=== PATIENT | female | born 1995 | race Caucasian/White ===

== ENCOUNTER → 2016-10-07 | Outpatient (CLI) | payer SELFPAY | END | disposition home or self-care (01) | LOC: MW.CHOBGYN 14:22 | PROVIDERS: ATTEND Advanced Practice Midwife | DX: Z30.9 Encounter for contraceptive management, unspecified (principal) | CPT/HCPCS: 81025 ==

== ENCOUNTER 2016-12-30 20:21 | Observation (INO) | payer SELFPAY ==
[2016-12-30] MEDS ORDERED: Sodium Chloride 0.9% 1,000 ML IV ONE (20:54)
--- NOTE | 2016-12-30 21:23 | EDM.PDOC ---
ED HPI GENERAL MEDICAL PROBLEM - General Chief Complaint: Skin Complaint Stated Complaint: PT LT CHEEK SWOLLEN Time Seen by Provider: 12/30/16 20:48 - History of Present Illness INITIAL COMMENTS - FREE TEXT/NARRATIVE: HISTORY AND PHYSICAL: History of present illness: Patient's 21-year-old white female sensory concern of swelling redness and pain to her left face this started with some type of the break in the skin of her left cheek she subsequently tried to exude pus or other material from it and it is gotten more red and more swollen and more painful. She denies fever chills nausea vomiting or other complaints Review of systems: As per history of present illness and below otherwise all systems reviewed and negative. Past medical history: As per history of present illness and as reviewed below otherwise noncontributory. Surgical history: As per history of present illness and as reviewed below otherwise noncontributory. Social history: No reported history of drug or alcohol abuse. Family history: As per history of present illness and as reviewed below otherwise noncontributory. Physical exam: HEENT: Moderate swelling with erythema left cheek extending to the periorbital area she has small excoriated area approximately 3 mm her left cheek., normocephalic, pupils reactive, negative for conjunctival pallor or scleral icterus, mucous membranes moist, throat clear, neck supple, nontender, trachea midline. Lungs: Clear to auscultation, breath sounds equal bilaterally, chest nontender. Heart: S1S2, regular, negative for clicks, rubs, or JVD. Abdomen: Soft, nondistended, nontender. Negative for masses or hepatosplenomegaly. Negative for costovertebral tenderness. Pelvis: Stable nontender. Genitourinary: Deferred. Rectal: Deferred. Extremities: Atraumatic, negative for cords or calf pain. Neurovascular unremarkable. Neuro: Awake, alert, oriented. Cranial nerves II through XII unremarkable. Cerebellum unremarkable. Motor and sensory unremarkable throughout. Exam nonfocal. Diagnostics: CBC CMP blood culture 2 CT maxillofacial with IV contrast Therapeutics: Normal saline 1 L bolus vancomycin 1 g IV Impression: #1 cellulitis left face Definitive disposition and diagnosis as appropriate pending reevaluation and review of above. face area Pain Score (Numeric/FACES): 8 - Related Data Allergies Allergy/AdvReac Type Severity Reaction Status Date / Time No Known Allergies Allergy Verified 12/30/16 20:30 Home Meds: Home Meds . [No Known Home Meds] 08/01/14 [History] Past Medical History - Past Health History Medical/Surgical History: Denies Medical/Surgical History Social & Family History - Tobacco Use Smoking Status *Q: Former Smoker Years of Tobacco use: 5 Used Tobacco, but Quit: Yes Month Tobacco Last Used: 1 - Alcohol Use Days Per Week of Alcohol Use: 0 - Recreational Drug Use Recreational Drug Use: No ED ROS GENERAL - Review of Systems Review Of Systems: ROS reveals no pertinent complaints other than HPI. ED EXAM, SKIN/RASH Exam: See Below (See dictation) Course - Vital Signs Last Recorded V/S: Last Vital Signs Temp 36.5 C 12/30/16 20:31 Pulse 82 12/30/16 20:31 Resp 16 12/30/16 20:31 BP 124/72 12/30/16 20:31 Pulse Ox 98 12/30/16 20:31 - Orders/Labs/Meds Orders: Active Orders 24 hr Category Date Time Status Admission Status [Patient Status] [ADT] Stat ADT 12/30/16 21:43 Active Antiembolic Devices [RC] PER UNIT ROUTINE Care 12/30/16 21:49 Active Oxygen Therapy [RC] PRN Care 12/30/16 21:47 Active Up ad Misty [RC] ASDIRECTED Care 12/30/16 21:47 Active VTE/DVT Education [RC] PER UNIT ROUTINE Care 12/30/16 21:47 Active Vital Signs [RC] Q4H Care 12/30/16 21:47 Active Regular Diet [DIET] Diet 12/30/16 Dinner Active BASIC METABOLIC PANEL,BMP [CHEM] AM Lab 12/31/16 05:11 Ordered CBC WITH AUTO DIFF [HEME] AM Lab 12/31/16 05:11 Ordered CULTURE BLOOD [BC] Stat Lab 12/30/16 21:08 Received CULTURE BLOOD [BC] Stat Lab 12/30/16 21:15 Received MAGNESIUM [CHEM] AM Lab 12/31/16 05:11 Ordered Acetaminophen [Tylenol] Med 12/30/16 21:47 Ordered 650 mg PO Q4H PRN Ondansetron [Zofran ODT] Med 12/30/16 21:47 Ordered 4 mg PO Q4H PRN Sodium Chloride 0.9% [Saline Flush] Med 12/30/16 21:47 Ordered 10 ml FLUSH ASDIRECTED PRN Sodium Chloride 0.9% [Saline Flush] Med 12/30/16 21:47 Ordered 2.5 ml FLUSH ASDIRECTED PRN Temazepam [Restoril] Med 12/30/16 21:47 Ordered 15 mg PO BEDTIME PRN Vancomycin Pharmacy to Dose [Pharmacy to Dose - Med 12/30/16 22:00 Ordered Vancomycin] 1 dose .XX ASDIRECTED Vancomycin [Vancocin] 1 gm Med 12/30/16 21:23 Active Sodium Chloride 0.9% [Normal Saline] 250 ml IV ONETIME cefTRIAXone [Rocephin] Med 12/30/16 22:00 Ordered 1,000 mg IVPUSH Q24H Blood Culture x2 Reflex Set [OM.PC] Stat Ot 12/30/16 20:54 Ordered Convert IV to Saline Lock [OM.PC] Stat Ot 12/30/16 21:47 Ordered Sequential Compression Device [OM.PC] Per Unit Routine Ot 12/30/16 21:48 Ordered Resuscitation Status Routine Resus Stat 12/30/16 21:47 Ordered Medication Orders Acetaminophen (Tylenol) 650 mg PO Q4H PRN PRN Reason: Pain (Mild 1-3)/fever Ceftriaxone Sodium (Rocephin) 1,000 mg IVPUSH Q24H REFUGIO Vancomycin HCl 1 gm/ Sodium (Chloride) 250 mls @ 250 mls/hr IV ONETIME ONE Stop: 12/30/16 22:22 Last Admin: 12/30/16 21:36 Dose: 250 mls/hr Ondansetron HCl (Zofran Odt) 4 mg PO Q4H PRN PRN Reason: nausea, able to take PO Sodium Chloride (Saline Flush) 10 ml FLUSH ASDIRECTED PRN PRN Reason: Keep Vein Open Sodium Chloride (Saline Flush) 2.5 ml FLUSH ASDIRECTED PRN PRN Reason: Keep Vein Open Temazepam (Restoril) 15 mg PO BEDTIME PRN PRN Reason: Sleep Vancomycin HCl (Pharmacy To Dose - Vancomycin) 1 dose .XX ASDIRECTED [facility] Labs: Laboratory Tests 12/30/16 12/30/16 12/30/16 Range/Units 21:15 21:15 21:15 WBC 10.36 (4.0-11.0) K/uL RBC 4.82 (4.30-5.90) M/uL Hgb 14.1 (12.0-16.0) g/dL Hct 41.5 (36.0-46.0) % MCV 86.1 (80.0-98.0) fL MCH 29.3 (27.0-32.0) pg MCHC 34.0 (31.0-37.0) g/dL RDW Std Deviation 38.5 (28.0-62.0) fl RDW Coeff of Becky 12 (11.0-15.0) % Plt Count 204 (150-400) K/uL MPV 11.70 (7.40-12.00) fL Neut % (Auto) 50.5 (48.0-80.0) % Lymph % (Auto) 39.0 (16.0-40.0) % [place] % (Auto) 8.9 (0.0-15.0) % Eos % (Auto) 1.3 (0.0-7.0) % Baso % (Auto) 0.3 (0.0-1.5) % Neut # (Auto) 5.2 (1.4-5.7) K/uL Lymph # (Auto) 4.0 H (0.6-2.4) K/uL [place] # (Auto) 0.9 H (0.0-0.8) K/uL Eos # (Auto) 0.1 (0.0-0.7) K/uL Baso # (Auto) 0.0 (0.0-0.1) K/uL Nucleated RBC % 0.0 /100WBC Nucleated RBCs # 0 K/uL Sodium 139 (136-146) mmol/L Potassium 3.9 (3.5-5.1) mmol/L Chloride 111 H (98-110) mmol/L Carbon Dioxide 22 (21-31) mmol/L BUN 13 (6.0-23.0) mg/dL Creatinine 0.8 (0.6-1.5) mg/dL Est Cr Clr Drug Dosing 117.23 mL/min Estimated GFR (MDRD) > 60.0 ml/min Glucose 80 (60-110) mg/dL Calcium 9.2 (8.8-10.8) mg/dL Total Bilirubin 0.6 (0.1-1.5) mg/dL AST 14 (5-40) IU/L ALT 19 (8-54) IU/L Alkaline Phosphatase 71 (40-150) Total Protein 6.9 (6.0-8.0) g/dL Albumin 4.0 (3.5-5.0) g/dL Globulin 2.9 (2.0-3.5) g/dL Albumin/Globulin Ratio 1.4 (1.3-2.8) HCG, Qual NEGATIVE (NEG) Urine Color Urine Appearance Urine pH (5.0-8.0) Ur Specific [place] (1.001-1.035) Urine Protein (NEGATIVE) mg/dL Urine Glucose (UA) (NEGATIVE) mg/dL Urine Ketones (NEGATIVE) mg/dL Urine Occult Blood (NEGATIVE) Urine Nitrite (NEGATIVE) Urine Bilirubin (NEGATIVE) Urine Urobilinogen (<2.0) EU/dL Ur Leukocyte Esterase (NEGATIVE) Urine RBC (0-2/HPF) Urine WBC (0-5/HPF) Ur Epithelial Cells (NONE-FEW) Urine Bacteria (NEGATIVE) Urine Mucus (NONE-MOD) 12/30/16 Range/Units 21:25 WBC (4.0-11.0) K/uL RBC (4.30-5.90) M/uL Hgb (12.0-16.0) g/dL Hct (36.0-46.0) % MCV (80.0-98.0) fL MCH (27.0-32.0) pg MCHC (31.0-37.0) g/dL RDW Std Deviation (28.0-62.0) fl RDW Coeff of Becky (11.0-15.0) % Plt Count (150-400) K/uL MPV (7.40-12.00) fL Neut % (Auto) (48.0-80.0) % Lymph % (Auto) (16.0-40.0) % [place] % (Auto) (0.0-15.0) % Eos % (Auto) (0.0-7.0) % Baso % (Auto) (0.0-1.5) % Neut # (Auto) (1.4-5.7) K/uL Lymph # (Auto) (0.6-2.4) K/uL [place] # (Auto) (0.0-0.8) K/uL Eos # (Auto) (0.0-0.7) K/uL Baso # (Auto) (0.0-0.1) K/uL Nucleated RBC % /100WBC Nucleated RBCs # K/uL Sodium (136-146) mmol/L Potassium (3.5-5.1) mmol/L Chloride (98-110) mmol/L Carbon Dioxide (21-31) mmol/L BUN (6.0-23.0) mg/dL Creatinine (0.6-1.5) mg/dL Est Cr Clr Drug Dosing mL/min Estimated GFR (MDRD) ml/min Glucose (60-110) mg/dL Calcium (8.8-10.8) mg/dL Total Bilirubin (0.1-1.5) mg/dL AST (5-40) IU/L ALT (8-54) IU/L Alkaline Phosphatase (40-150) Total Protein (6.0-8.0) g/dL Albumin (3.5-5.0) g/dL Globulin (2.0-3.5) g/dL Albumin/Globulin Ratio (1.3-2.8) HCG, Qual (NEG) Urine Color YELLOW Urine Appearance CLEAR Urine pH 6.0 (5.0-8.0) Ur Specific [place] 1.020 (1.001-1.035) Urine Protein NEGATIVE (NEGATIVE) mg/dL Urine Glucose (UA) NEGATIVE (NEGATIVE) mg/dL Urine Ketones NEGATIVE (NEGATIVE) mg/dL Urine Occult Blood TRACE-INTACT (NEGATIVE) Urine Nitrite NEGATIVE (NEGATIVE) Urine Bilirubin NEGATIVE (NEGATIVE) Urine Urobilinogen 0.2 (<2.0) EU/dL Ur Leukocyte Esterase SMALL (NEGATIVE) Urine RBC 0-2 (0-2/HPF) Urine WBC 2-4 (0-5/HPF) Ur Epithelial Cells FEW (NONE-FEW) Urine Bacteria FEW (NEGATIVE) Urine Mucus FEW (NONE-MOD) Meds: Medications Generic Name Dose Route Start Last Admin Trade Name Freq PRN Reason Stop Dose Admin Acetaminophen 650 mg 12/30/16 21:47 Tylenol PO Q4H PRN Pain (Mild 1-3)/fever Ceftriaxone Sodium 1,000 mg 12/30/16 22:00 Rocephin IVPUSH Q24H REFUGIO Vancomycin HCl 1 gm/ Sodium 250 mls @ 250 mls/hr 12/30/16 21:23 12/30/16 21: 36 Chloride IV 12/30/16 22:22 250 mls/hr ONETIME ONE Administration Ondansetron HCl 4 mg 12/30/16 21:47 Zofran Odt PO Q4H PRN nausea, able to take PO Sodium Chloride 10 ml 12/30/16 21:47 Saline Flush FLUSH ASDIRECTED PRN Keep Vein Open Sodium Chloride 2.5 ml 12/30/16 21:47 Saline Flush FLUSH ASDIRECTED PRN Keep Vein Open Temazepam 15 mg 12/30/16 21:47 Restoril PO BEDTIME PRN Sleep Vancomycin HCl 1 dose 12/30/16 22:00 Pharmacy To Dose - Vancomycin .XX ASDIRECTED REFUGIO Discontinued Medications Generic Name Dose Route Start Last Admin Trade Name Freq PRN Reason Stop Dose Admin Diphenhydramine HCl 50 mg 12/30/16 21:58 12/30/16 22:00 Benadryl IVPUSH 12/30/16 21:59 50 mg ONETIME ONE Administration Diphenhydramine HCl Confirm 12/30/16 21:56 12/30/16 22:00 Benadryl Administered 12/30/16 21:57 Not Given Dose 50 mg .ROUTE .STK-MED ONE Sodium Chloride 1,000 mls @ 999 mls/hr 12/30/16 20:54 12/30/16 21:18 Normal Saline IV 12/30/16 21:54 999 mls/hr STAT ONE Administration Departure - Departure Time of Disposition: 22:01 Disposition: Refer to Observation Condition: Good Clinical Impression: Cellulitis - Discharge Information Forms: ED Department Discharge - My Orders Last 24 Hours: My Active Orders 12/30/16 20:54 Blood Culture x2 Reflex Set [OM.PC] Stat 12/30/16 21:08 CULTURE BLOOD [BC] Stat 12/30/16 21:15 CULTURE BLOOD [BC] Stat 12/30/16 21:23 Vancomycin [Vancocin] 1 gm Sodium Chloride 0.9% [Normal Saline] 250 ml IV ONETIME - Assessment/Plan Last 24 Hours: My Active Orders 12/30/16 20:54 Blood Culture x2 Reflex Set [OM.PC] Stat 12/30/16 21:08 CULTURE BLOOD [BC] Stat 12/30/16 21:15 CULTURE BLOOD [BC] Stat 12/30/16 21:23 Vancomycin [Vancocin] 1 gm Sodium Chloride 0.9% [Normal Saline] 250 ml IV ONETIME
[2016-12-30] MEDS ORDERED: Sodium Chloride 0.9% 2.5 ML Syringe FLUSH PRN (21:47)
[2016-12-30] MEDS ORDERED: Sodium Chloride 0.9% 10 ML Syringe FLUSH PRN (21:47)
[2016-12-30] MEDS ORDERED: Temazepam 15 MG Cap PO PRN (21:47)
[2016-12-30] MEDS ORDERED: Ondansetron 4 MG Tab.DIS PO PRN (21:47)
[2016-12-30 21:53] LABS: CHLORIDE,CL 111 mmol/L (98-110); SODIUM,NA 139 mmol/L (136-146)
[2016-12-30] MEDS ORDERED: diphenhydrAMINE 50 MG/ML SDV ONE (21:56)
[2016-12-30] MEDS ORDERED: diphenhydrAMINE 50 MG/ML SDV IVPUSH ONE (21:58)
--- NOTE | 2016-12-30 21:58 | PCM.HP ---
H&P History of Present Illness - General Date of Service: 12/30/16 Admit Problem/Dx: Admission Diagnosis/Problem Admission Diagnosis/Problem Cellulitis Source of Information: Patient, Provider - History of Present Illness Initial Comments - Free Text/Narative: She presented to the ED today with recent onset of facial soreness and swelling and redness. She was diagnosed with facial cellulitis. face area Pain Score (Numeric/FACES): 8 - Related Data Allergies/Adverse Reactions: Allergies Allergy/AdvReac Type Severity Reaction Status Date / Time No Known Allergies Allergy Verified 12/30/16 20:30 Home Medications: Home Meds . [No Known Home Meds] 08/01/14 [History] Past Medical History - Past Health History Medical/Surgical History: Denies Medical/Surgical History HEENT History: Reports: None Cardiovascular History: Reports: None Respiratory History: Reports: None Gastrointestinal History: Reports: None Genitourinary History: Reports: None [employer]IST History: Reports: Musculoskeletal History: Reports: None Neurological History: Reports: None Psychiatric History: Reports: None Endocrine/Metabolic History: Reports: None Hematologic History: Reports: None Immunologic History: Reports: None Oncologic (Cancer) History: Reports: None Dermatologic History: Reports: None - Infectious Disease History Infectious Disease History: Reports: None Social & Family History - Family History Family Medical History: Noncontributory - Tobacco Use Smoking Status *Q: Current Some Day Smoker Years of Tobacco use: 8 Packs/Tins Daily: 0.5 Used Tobacco, but Quit: Yes Month Tobacco Last Used: 1 - Caffeine Use Caffeine Use: Reports: None - Alcohol Use Days Per Week of Alcohol Use: 0 - Recreational Drug Use Recreational Drug Use: No H&P Review of Systems - Review of Systems: Review Of Systems: See Below General: Denies: Fever, Chills HEENT: Reports: Other (no dental pain). Denies: Ear Pain, Headaches, Sore Throat Pulmonary: Denies: Shortness of Breath, Wheezing, Cough, Sputum, Hemoptysis Cardiovascular: Denies: Chest Pain, Palpitations Gastrointestinal: Denies: Abdominal Pain, Black Stool, Bloody Stool, Difficulty Swallowing, Hematochezia, Nausea Genitourinary: Denies: Dysuria, Hematuria Musculoskeletal: Reports: No Symptoms Skin: Denies: Cyanosis, Jaundice Psychiatric: Denies: Confusion Exam - Exam Exam: See Below - Vital Signs Vital Signs: Last Vital Signs Temp 97.7 F 12/30/16 20:31 Pulse 82 12/30/16 20:31 Resp 16 12/30/16 20:31 BP 124/72 12/30/16 20:31 Pulse Ox 98 12/30/16 20:31 Weight: 83.5 kg - Exam General: Alert, Oriented, Cooperative HEENT: EOMI, Mucosa Moist & [place] Neck: Supple, Trachea Midline Lungs: Clear to Auscultation, Normal Respiratory Effort Cardiovascular: Regular Rate, Regular Rhythm Abdomen: Soft. No: Distention, Tenderness (Female) Exam: Deferred Rectal (Female) Exam: Deferred Extremities: Normal Inspection Skin: Other (left cheek with swelling and tenderness and induration; puffiness around left infraorbital region. EOMs normal ; central 4 mm crusted area; no definite abscess noted. ) Neurological: Cranial Nerves Intact, Normal Speech - Patient Data Lab Results Last 24 hrs: Laboratory Results - last 24 hr 12/30/16 12/30/16 12/30/16 Range/Units 21:15 21:15 21:25 WBC 10.36 (4.0-11.0) K/uL RBC 4.82 (4.30-5.90) M/uL Hgb 14.1 (12.0-16.0) g/dL Hct 41.5 (36.0-46.0) % MCV 86.1 (80.0-98.0) fL MCH 29.3 (27.0-32.0) pg MCHC 34.0 (31.0-37.0) g/dL RDW Std Deviation 38.5 (28.0-62.0) fl RDW Coeff of Becky 12 (11.0-15.0) % Plt Count 204 (150-400) K/uL MPV 11.70 (7.40-12.00) fL Neut % (Auto) 50.5 (48.0-80.0) % Lymph % (Auto) 39.0 (16.0-40.0) % [place] % (Auto) 8.9 (0.0-15.0) % Eos % (Auto) 1.3 (0.0-7.0) % Baso % (Auto) 0.3 (0.0-1.5) % Neut # (Auto) 5.2 (1.4-5.7) K/uL Lymph # (Auto) 4.0 H (0.6-2.4) K/uL [place] # (Auto) 0.9 H (0.0-0.8) K/uL Eos # (Auto) 0.1 (0.0-0.7) K/uL Baso # (Auto) 0.0 (0.0-0.1) K/uL Nucleated RBC % 0.0 /100WBC Nucleated RBCs # 0 K/uL HCG, Qual NEGATIVE (NEG) Urine Color YELLOW Urine Appearance CLEAR Urine pH 6.0 (5.0-8.0) Ur Specific [place] 1.020 (1.001-1.035) Urine Protein NEGATIVE (NEGATIVE) mg/dL Urine Glucose (UA) NEGATIVE (NEGATIVE) mg/dL Urine Ketones NEGATIVE (NEGATIVE) mg/dL Urine Occult Blood TRACE-INTACT (NEGATIVE) Urine Nitrite NEGATIVE (NEGATIVE) Urine Bilirubin NEGATIVE (NEGATIVE) Urine Urobilinogen 0.2 (<2.0) EU/dL Ur Leukocyte Esterase SMALL (NEGATIVE) Result Diagrams: 12/30/16 21:15 *Q Meaningful Use (ADM) - VTE *Q VTE Criteria *Q: - Stroke *Q Stroke Criteria *Q: - AMI *Q AMI Criteria *Q: - Problem List (1) Facial cellulitis SNOMED Code(s): 232409581 ICD Code: L03.211 - CELLULITIS OF FACE Status: Acute Current Visit: Yes Problem List Initiated/Reviewed/Updated: Yes Orders Last 24hrs: Active Orders 24 hr Category Date Time Status Admission Status [Patient Status] [ADT] Stat ADT 12/30/16 21:43 Active Antiembolic Devices [RC] PER UNIT ROUTINE Care 12/30/16 21:49 Ordered Oxygen Therapy [RC] PRN Care 12/30/16 21:47 Ordered Up ad Misty [RC] ASDIRECTED Care 12/30/16 21:47 Ordered VTE/DVT Education [RC] PER UNIT ROUTINE Care 12/30/16 21:47 Ordered Vital Signs [RC] Q4H Care 12/30/16 21:47 Ordered Regular Diet [DIET] Diet 12/30/16 Dinner Ordered BASIC METABOLIC PANEL,BMP [CHEM] AM Lab 12/31/16 05:11 Ordered CBC WITH AUTO DIFF [HEME] AM Lab 12/31/16 05:11 Ordered COMPREHENSIVE METABOLIC PN,CMP [CHEM] Stat Lab 12/30/16 21:15 Received CULTURE BLOOD [BC] Stat Lab 12/30/16 21:08 Received CULTURE BLOOD [BC] Stat Lab 12/30/16 21:15 Received MAGNESIUM [CHEM] AM Lab 12/31/16 05:11 Ordered UA W/MICROSCOPIC [URIN] Stat Lab 12/30/16 21:25 Received Acetaminophen [Tylenol] Med 12/30/16 21:47 Ordered 650 mg PO Q4H PRN Ondansetron [Zofran ODT] Med 12/30/16 21:47 Ordered 4 mg PO Q4H PRN Sodium Chloride 0.9% [Saline Flush] Med 12/30/16 21:47 Ordered 10 ml FLUSH ASDIRECTED PRN Sodium Chloride 0.9% [Saline Flush] Med 12/30/16 21:47 Ordered 2.5 ml FLUSH ASDIRECTED PRN Temazepam [Restoril] Med 12/30/16 21:47 Ordered 15 mg PO BEDTIME PRN Vancomycin Pharmacy to Dose [Pharmacy to Dose - Med 12/30/16 22:00 Ordered Vancomycin] 1 dose .XX ASDIRECTED Vancomycin [Vancocin] 1 gm Med 12/30/16 21:23 Active Sodium Chloride 0.9% [Normal Saline] 250 ml IV ONETIME cefTRIAXone [Rocephin] Med 12/30/16 22:00 Ordered 1,000 mg IVPUSH Q24H Blood Culture x2 Reflex Set [OM.PC] Stat Oth 12/30/16 20:54 Ordered Convert IV to Saline Lock [OM.PC] Stat Oth 12/30/16 21:47 Ordered Sequential Compression Device [OM.PC] Per Unit Routine Oth 12/30/16 21:48 Ordered Resuscitation Status Routine Resus Stat 12/30/16 21:47 Ordered Medication Orders Acetaminophen (Tylenol) 650 mg PO Q4H PRN PRN Reason: Pain (Mild 1-3)/fever Ceftriaxone Sodium (Rocephin) 1,000 mg IVPUSH Q24H REFUGIO Vancomycin HCl 1 gm/ Sodium (Chloride) 250 mls @ 250 mls/hr IV ONETIME ONE Stop: 12/30/16 22:22 Last Admin: 12/30/16 21:36 Dose: 250 mls/hr Ondansetron HCl (Zofran Odt) 4 mg PO Q4H PRN PRN Reason: nausea, able to take PO Sodium Chloride (Saline Flush) 10 ml FLUSH ASDIRECTED PRN PRN Reason: Keep Vein Open Sodium Chloride (Saline Flush) 2.5 ml FLUSH ASDIRECTED PRN PRN Reason: Keep Vein Open Temazepam (Restoril) 15 mg PO BEDTIME PRN PRN Reason: Sleep Vancomycin HCl (Pharmacy To Dose - Vancomycin) 1 dose .XX ASDIRECTED REFUGIO
[2016-12-30] MEDS ORDERED: cefTRIAXone 1,000 MG VIAL IVPUSH SCH (22:00)
[2016-12-30] MEDS ORDERED: cefTRIAXone 1 GM in Premix Bag 1 BAG IV SCH (22:15)
[2016-12-30] MEDS: Acetaminophen 325 MG Tab PO PRN (22:47)
[2016-12-30] MEDS: Nicotine 21 MG/24 Hr Patch TRDERM SCH (23:14)
[2016-12-30] MEDS: Clindamycin Phosphate in D5W 300 MG in Premix Bag 1 BAG IV SCH ×2 (23:26)
[2016-12-31] MEDS: Clindamycin Phosphate in D5W 300 MG in Premix Bag 1 BAG IV SCH ×4 (04:48→10:35)
[2016-12-31 06:14] LABS: CHLORIDE,CL 113 mmol/L (98-110); SODIUM,NA 138 mmol/L (136-146)
[2016-12-31] MEDS: Acetaminophen 325 MG Tab PO PRN (08:44)
[2016-12-31] MEDS: Nicotine 21 MG/24 Hr Patch TRDERM SCH (08:45)
[2016-12-31 09:01] VITALS: BP 116/70
--- NOTE | 2016-12-31 09:02 | PCM.DCSUM1 ---
Discharge Summary - Hospital Course Brief History: she was admitted with facial cellulitis - Discharge Data Discharge Date: 12/31/16 Discharge Disposition: Home, Self-Care 01 Condition: Good - Discharge Diagnosis/Problem(s) (1) Facial cellulitis SNOMED Code(s): 212778084 ICD Code: L03.211 - CELLULITIS OF FACE Status: Acute Current Visit: Yes - Patient Summary/Data Hospital Course: she was started on vancomycin and zosyn. She showed remarkable improvement by the day after discharge and wants to go home. The facial swelling and redness has regressed by at least 50%. There is still some induration and I advised that incision and drainage might need to be considered if she does not show continued improvement. I recommended a further time in the hospital but she is insistent on going home today understanding the risks or worsening. I advised follow up tomorrow with a primary care physician - Discharge Plan Home Medications: Home Meds . [No Known Home Meds] 08/01/14 [History] Forms: ED Department Discharge Referrals: PCP,None [Primary Care Provider] - - Patient Data Vitals - Most Recent: Last Vital Signs Temp 98.6 F 12/31/16 04:00 Pulse 88 12/31/16 04:00 Resp 16 12/31/16 04:00 BP 126/73 12/31/16 04:00 Pulse Ox 95 12/31/16 04:00 Weight - Most Recent: 84.5 kg Lab Results - Last 24 hrs: Laboratory Results - last 24 hr 12/31/16 12/31/16 Range/Units 05:28 05:28 WBC 9.02 (4.0-11.0) K/uL RBC 4.43 (4.30-5.90) M/uL Hgb 12.9 (12.0-16.0) g/dL Hct 38.4 (36.0-46.0) % MCV 86.7 (80.0-98.0) fL MCH 29.1 (27.0-32.0) pg MCHC 33.6 (31.0-37.0) g/dL RDW Std Deviation 38.9 (28.0-62.0) fl RDW Coeff of Becky 12 (11.0-15.0) % Plt Count 196 (150-400) K/uL MPV 11.90 (7.40-12.00) fL Neut % (Auto) 43.2 L (48.0-80.0) % Lymph % (Auto) 45.7 H (16.0-40.0) % [place] % (Auto) 8.9 (0.0-15.0) % Eos % (Auto) 1.8 (0.0-7.0) % Baso % (Auto) 0.4 (0.0-1.5) % Neut # (Auto) 3.9 (1.4-5.7) K/uL Lymph # (Auto) 4.1 H (0.6-2.4) K/uL [place] # (Auto) 0.8 (0.0-0.8) K/uL Eos # (Auto) 0.2 (0.0-0.7) K/uL Baso # (Auto) 0.0 (0.0-0.1) K/uL Nucleated RBC % 0.0 /100WBC Nucleated RBCs # 0 K/uL Sodium 138 (136-146) mmol/L Potassium 3.6 (3.5-5.1) mmol/L Chloride 113 H (98-110) mmol/L Carbon Dioxide 21 (21-31) mmol/L BUN 10 (6.0-23.0) mg/dL Creatinine 0.8 (0.6-1.5) mg/dL Est Cr Clr Drug Dosing 105.01 mL/min Estimated GFR (MDRD) > 60.0 ml/min Glucose 98 (60-110) mg/dL Calcium 8.3 L (8.8-10.8) mg/dL Magnesium 1.7 (1.5-2.3) mEq/L Med Orders - Current: Current Medications Acetaminophen (Tylenol) 650 mg PO Q4H PRN PRN Reason: Pain (Mild 1-3)/fever Last Admin: 12/31/16 08:44 Dose: 650 mg Ceftriaxone Sodium/Dextrose 1 (gm/ Premix) 50 mls @ 100 mls/hr IV Q24H [facility] Last Admin: 12/30/16 22:44 Dose: 100 mls/hr Clindamycin Phosphate 300 mg/ (Premix) 50 mls @ 150 mls/hr IV Q6H [facility] Last Admin: 12/31/16 04:48 Dose: 150 mls/hr Nicotine (Habitrol) 21 mg TRDERM DAILY [facility] Last Admin: 12/31/16 08:45 Dose: 21 mg Ondansetron HCl (Zofran Odt) 4 mg PO Q4H PRN PRN Reason: nausea, able to take PO Sodium Chloride (Saline Flush) 10 ml FLUSH ASDIRECTED PRN PRN Reason: Keep Vein Open Sodium Chloride (Saline Flush) 2.5 ml FLUSH ASDIRECTED PRN PRN Reason: Keep Vein Open Temazepam (Restoril) 15 mg PO BEDTIME PRN PRN Reason: Sleep Discontinued Medications Ceftriaxone Sodium (Rocephin) 1,000 mg IVPUSH Q24H [facility] Last Admin: 12/30/16 22:49 Dose: Not Given Diphenhydramine HCl (Benadryl) 50 mg IVPUSH ONETIME ONE Stop: 12/30/16 21:59 Last Admin: 12/30/16 22:00 Dose: 50 mg Diphenhydramine HCl (Benadryl) Confirm Administered Dose 50 mg .ROUTE .STK-MED ONE Stop: 12/30/16 21:57 Last Admin: 12/30/16 22:00 Dose: Not Given Sodium Chloride (Normal Saline) 1,000 mls @ 999 mls/hr IV STAT ONE Stop: 12/30/16 21:54 Last Admin: 12/30/16 21:18 Dose: 999 mls/hr Vancomycin HCl 1 gm/ Sodium (Chloride) 250 mls @ 250 mls/hr IV ONETIME ONE Stop: 12/30/16 22:22 Last Admin: 12/30/16 21:36 Dose: 250 mls/hr Clindamycin Phosphate 300 mg/ (Sodium Chloride) 52 mls @ 100 mls/hr IV Q6H [facility] Last Admin: 12/30/16 23:22 Dose: Not Given Vancomycin HCl (Pharmacy To Dose - Vancomycin) 1 dose .XX ASDIRECTED REFUGIO *Q Meaningful Use (DIS) - VTE *Q VTE Criteria *Q: - Stroke *Q Stroke Criteria *Q: - AMI *Q AMI Criteria *Q:
== END 2016-12-31 11:10 | disposition home or self-care (01) ==
LOC: MW.ED 20:21 → MW.MS 21:43
PROVIDERS: ADMIT Family Medicine; ATTEND Family Medicine
DX: L03.211 Cellulitis of face (principal); F17.210 Nicotine dependence, cigarettes, uncomplicated
CPT/HCPCS: 36415; 80048; 80053; 81001; 83735; 84703; 85025; 87040; 96365; 96375; 99284; A9270; J0696; J1200; J3370; J7040; J7050; 96366; 96367; 99285; G0378